=== PATIENT | male | born 1955 | race Caucasian/White ===

== ENCOUNTER 2020-09-23 12:47 | Emergency (ER) | payer OTHER ==
[2020-09-23 12:57] VITALS: TEMP 97.9; BMI 30.4
[2020-09-23] MEDS ORDERED: KETOROLAC TROMETHAMINE 60 MG/2 ML VIAL ONE (13:05)
[2020-09-23] MEDS ORDERED: KETOROLAC TROMETHAMINE 60 MG/2 ML VIAL IM ONE (13:16)
[2020-09-23] MEDS ORDERED: LABETALOL HCL 100 MG TABLET (FP) PO ONE (13:51)
[2020-09-23] MEDS ORDERED: LABETALOL HCL 100 MG TABLET (FP) ONE (13:54)
[2020-09-23 14:38] VITALS: BP 157/105; PULSE 72
== END 2020-09-23 14:57 | disposition home or self-care (01) ==
LOC: FER 12:47
PROC: 3E023GC Introduction of Other Therapeutic Substance into Muscle, Percutaneous Approach (ICD-10-PCS; principal; 2020-09-23)
DX: S46.001A Unspecified injury of muscle(s) and tendon(s) of the rotator cuff of right shoulder, initial encounter (principal); R03.0 Elevated blood-pressure reading, without diagnosis of hypertension; Y99.8 Other external cause status
CPT/HCPCS: 73030-TC-RT-FY; 73060-TC-RT-FY; 99284-25